=== PATIENT | female | born 1980 | race Caucasian/White ===

== ENCOUNTER 2017-10-24 15:38 | Emergency (ER) | payer BC, OTHER ==
[2017-10-24] MEDS ORDERED: predniSONE 20 MG TAB ONE (15:53)
[2017-10-24] MEDS ORDERED: Ketorolac Tromethamine 30 MG/ML VIAL ONE (15:53)
== END 2017-10-24 16:16 | disposition home or self-care (01) ==
LOC: SCSER 15:38
DX: M54.31 Sciatica, right side (principal); Z79.899 Other long term (current) drug therapy
CPT/HCPCS: 96372; J1885; J7506